=== PATIENT | female | born 1965 | race American Indian/Alaskan Native ===

== ENCOUNTER 2021-04-13 17:36 | Emergency (ER) | payer OTHER ==
[~2021-04-13] VITALS: Ht 160 cm; Wt 87.5 kg
[~2021-04-13 17:36] MED LIST: DULERA 100 MCG/13 GM INH; FEXOFENADINE H180 MG PO; LEVOTHYROXINE75 MCG PO; MULTIVITAMINS1 EAC8 PO; SINGULAIR10 MG PO; VENTOLIN HFA18 GM INH
--- OUTSIDE RECORDS SUMMARY | 2021-04-13 17:38 | XMS ---
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 Elena has no Care Guidelines for this patient. Hanny VISIT COUNT (12 MO.) 1 [facility] TOTAL 1 NOTE: Visits indicate total known visits. ED/C VISIT TRACKING (12 MO.) 04/13/2021 17:37 [facility] [place] TYPE: Emergency COMPLAINT: - COUGH,BODY ACHE INPATIENT VISIT TRACKING (12 MO.) No inpatient visits to display in this time frame [id number]
[2021-04-13] MEDS ORDERED: LEVOFLOXACIN750 MG PO (23:07)
== END 2021-04-13 23:25 | disposition home or self-care (01) ==
LOC: ED 17:36
DX: J18.9 Pneumonia, unspecified organism (principal); Z20.822 Contact with and (suspected) exposure to COVID-19; J45.909 Unspecified asthma, uncomplicated; E03.9 Hypothyroidism, unspecified; Z87.891 Personal history of nicotine dependence; Z88.0 Allergy status to penicillin; Z88.5 Allergy status to narcotic agent; Z88.8 Allergy status to other drugs, medicaments and biological substances; Z79.899 Other long term (current) drug therapy
CPT/HCPCS: 71046; 71260; 80053; 81001; 85025; 99285-25; C9803; J7040; Q9967; U0003

== ENCOUNTER 2021-04-16 16:34 | Inpatient (IN) | payer BC, OTHER ==
[~2021-04-16] VITALS: Ht 160 cm; Wt 88.2 kg
[~2021-04-16 16:34] MED LIST changes: +LEVOFLOXACIN750 MG PO
--- OUTSIDE RECORDS SUMMARY | 2021-04-16 16:38 | XMS ---
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 - Has Care Guidelines - [facility] - 2 Visits in 30 Days - PDMP CARE PROVIDERS [facility]/[place] 04/15/2021-[facility] PHONE: [phone] Elena has no Care Guidelines for this patient. Care History Medical/Surgical 04/15/2021 [facility] - PATIENT IS [facility] ELIGIBLE, \T\middot;\T\nbsp; PLEASE REFER PATIENT TO [facility] FOR NON EMERGENT MEDICAL NEEDS. \T\middot;\T\nbsp; [facility] CAN SEE PATIENTS SAME DAY FOR APTS IF PATIENT CALLS FIRST THING IN THE MORNING. E.D. VISIT COUNT (12 MO.) 2 [facility]. TOTAL 2 NOTE: Visits indicate total known visits. ED/UCC VISIT TRACKING (12 MO.) 04/16/2021 16:[address] [facility] [place] TYPE: Emergency COMPLAINT: - LOW O2 SATS DUE TO PNEUMONIA 04/13/2021 17:37 [facility] [place] TYPE: Emergency COMPLAINT: - COUGH,BODY ACHE INPATIENT VISIT TRACKING (12 MO.) No inpatient visits to display in this time frame [email or web address]
[2021-04-16] MEDS ORDERED: MEDROL4 MG PO (17:14)
--- NOTE | 2021-04-16 20:40 | NUR ---
pt ARRIVED TO THE UNIT VIA STRETCHER. AMBULATED TO BED WITHOUT ASSISTANCE. DANIS DUEÑAS IN ROOM TO ASSIST pt.
--- NOTE | 2021-04-16 21:15 | NUR ---
IN TO DO ASSESSMENT. pt RESTING IN BED. DENIES PAIN AND SOB AT THIS TIME. ABLE TO TALK IN FULL SENTENCES. ON 15L VIA OXYMASK. LUNG SOUNDS TIGHT. WHEEZING HEARD THROUGHOUT. NO REQUESTS AT THIS TIME. MAX DUEÑAS IN TO DO ADMISSION. CALL LIGHT WITHIN REACH.
--- NOTE | 2021-04-16 21:57 | NUR ---
ADMISSION COMPLETED. PATIENT ON MONITOR, SCHEDULED MEDICATION GIVEN PER ORDER. PATIENT DENIES ANY PAIN OR SOB. PATIENT TITRATED TO 11L VIA OXYMASK. PATIENTS OXYGEN SATURATION IS 97% PATIENT DENIES ANY SOB. PATIENT PROVIDED WITH ICE WATER AND SNACK. PATIENT DENIES ANY FURTHER NEEDS. CALL LIGHT IN REACH.
--- NOTE | 2021-04-16 22:20 | NUR ---
SPOKE WITH DR CLARKE, UPDATED ON pt CURRENT O2 NEEDS OF 11L VIA OXYMASK. NO NEW ORDERS AT THIS TIME.
--- NOTE | 2021-04-16 22:25 | NUR ---
PATIENT ASSISTED TO THE BSC A SBA. PATIENT WAS ABLE VOID. PATIENT IS BACK IN BED RESTING. PATIENT TITRATES DOWN TO 9L VIA NC. PATIENT DENIES ANY SOB. PATIENT DENIES ANY FURTHER NEEDS. CALL LIGHT IN REACH.
--- NOTE | 2021-04-16 23:05 | NUR ---
PATIENT PLACED ON 6L VIA NC W/HUMIDIFICATION. PATIENT PROVIDED WITH SANDWICH BOX. PATIENT DENIES ANY SOB. NO FURTHER NEEDS NOTED. CALL LIGHT IN REACH.
--- NOTE | 2021-04-16 23:50 | NUR ---
ROUNDED ON pt. RESTING IN BED. REPORTS SHE HAD ENOUGH TO EAT AND IS FEELING BETTER. DENIES PAIN. LUNG SOUNDS ARE LESS TIGHT MORE AIR MOVEMENT HEARD THEN ADMISSION ASSESSMENT. pt ON 6L NC. NO OTHER CHANGES IN ASSESSMENT. CALL LIGHT WITHIN REACH.
--- NOTE | 2021-04-17 00:20 | NUR ---
pt SATS IN THE HIGH 70'S ON 6L NC. SITTING UP IN BED WITH EYES CLOSED, WOKE TO VOICE. MOVED FROM NC 6L TO OXY MASK 9L. pt CONTINUES TO DESAT ON 9L OXY MASK, INCREASED TO 15L. pt SATS NOW LOW 90'S. CALL LIGHT WITHIN REACH.
--- NOTE | 2021-04-17 00:42 | NUR ---
RT ASSESSED pt. pt RESTING ON RIGHT SIDE, 15L HIGH FLOW NC. SATS MID 90'S. EYES CLOSED RESPIRATIONS REGULAR. CALL LIGHT WITHIN REACH.
--- NOTE | 2021-04-17 01:00 | NUR ---
pt UP TO HAVE A LARGE BM. O2 REQUIREMENTS INCREASED AFTER pt GOT BACK TO BED. CALL LIGHT WITHIN REACH.
--- NOTE | 2021-04-17 02:04 | NUR ---
ROUNDED ON pt. SITTING UP IN BED, EYES CLOSED, RESPIRATIONS REMAIN SHALLOW. pt SATS 98% ON OXYMASK, 13L. CALL LIGHT WITHIN REACH.
--- NOTE | 2021-04-17 02:28 | NUR ---
SATS MID 80'S. IN TO ASSESS. MOVED pt TO RIGHT SIDE. OXYMASK 13L. SAT INCREASED TO MID 90'S. CALL LIGHT WITHIN REACH.
--- NOTE | 2021-04-17 05:31 | NUR ---
pt SATS LOW 80'S. IN TO ASSESS. pt MOVING AROUND, SATS INCREASED AFTER SOME REST. MEDICATIONS GIVEN (SEE MAR). ASSESSMENT DONE. pt UP TO VOID AND BACK TO BED. EDUCATION DONE ON IMPORTANCE OF OXYGEN AND RESTRICTING ACTIVITY WHEN SHE IS SOB. pt WAS SOB WHEN BACK TO BED. RECOVERED WITHIN 2 MINUTES. O2 DEMAND INCREASED WITH AMBULATION. RESTING IN BED. OXYMASK ON AT 13L. CALL LIGHT WITHIN REACH.
--- NOTE | 2021-04-17 07:30 | NUR ---
report recieved. PATIENT IS RESTING IN BED WITH HOB ELEVATED. OXYMASK IN PLACE.
--- NOTE | 2021-04-17 08:00 | NUR ---
ASSESSMENT DONE.TALKED WITH PATIENT ABOUT POC FOR DAY, INDICATES UNDERSTANDING. IV ABX INFUSING. IS SHORT OF BREATH WITH EXERTION.
--- NOTE | 2021-04-17 08:30 | NUR ---
UP TO BR TO VOID. O2 SAT DOWN TO 77 WITH EXERTION. REMAINS ON OXYMASK AT 12 LITERS. WITHIN APPROX 3 MIN UPON RETURN TO BED, O2 SAT TO 88.
--- NOTE | 2021-04-17 09:00 | NUR ---
O2 SOURCE CHANGED TO VAPOTHERM AT 40L, 90% FIO2. DENIES PAIN. TOOK BREAKFAST FAIR. ROUTINE MEDICATIONS GIVEN.
--- NOTE | 2021-04-17 10:00 | NUR ---
O2 SATS REMAIN LOW ON VPOTHERM AT 100% FIO2, 40 LITERS.
--- NOTE | 2021-04-17 12:00 | NUR ---
DR. VINCE REIS TO SEE PATIENT. ORDERS RECIEVED. CHILDS CATH 16 FR PLACED WITH RETURN OF CLEAR YELLOW URINE. PATIENT IS CURRENTLY ON VAPOTHERM AT 40 L AND 100% FIO2, PATIENT HAS BEEN TAKING OUT THE NC FREQUENTLY TO BLOW NOSE, WHEN THIS DONE, O2 SAT DOWN TO LOW 80'S. ENC PATIENT TO KEEP VAPOTHERN NC IN MUCH POSSIBLE. 100% NRBM USED WELL, PRN. ASSESSMENT DONE.
--- NOTE | 2021-04-17 12:55 | NUR ---
NOW ON CPAP AT 60% FIO2 AND PRESSURE ON 10. FAMILY MEMBER IN ROOM. LASIX 40 MG IV GIVEN. CHILDS CATH PATENT.
--- NOTE | 2021-04-17 13:00 | NUR ---
LUNCH HELD AT THIS TIME DUE TO INCREASED O2 DEMAND.
[2021-04-17] MEDS ORDERED: CETIRIZINE HCL10 MG PO (14:02)
[2021-04-17] MEDS ORDERED: EZETIMIBE10 MG PO (14:03)
[2021-04-17] MEDS ORDERED: CHLORPHENIRAMINE4 MG PO (14:03)
[2021-04-17] MEDS ORDERED: WIXELA 500-501 EACH INH (14:04)
[2021-04-17] MEDS ORDERED: NALTREXONE HCL50 MG PO (14:05)
[2021-04-17] MEDS ORDERED: PSEUDOEPHEDRINE60 MG PO (14:06)
[2021-04-17] MEDS ORDERED: ALLERGY EYE DRO15 ML OPTH (14:06)
--- NOTE | 2021-04-17 14:08 | NUR ---
MED REC COMPLETED BY PHARMACY
--- NOTE | 2021-04-17 14:22 | NUR ---
CHECKING WITH PT TO SEE IF SHE WOULD LIKE A WEIGHT CONTROL ENGINEER TO VISIT TODAY FOLLOWING MASS. PT SAID YES, CONNECTED WITH FR. HOPKINS, HE WILL VISIT. WILL CONTINUE TO FOLLOW
--- NOTE | 2021-04-17 15:00 | NUR ---
HAS BEEN USING CPAP THIS AFTERNOON. DENEIS NAUSEA,PAIN.
--- NOTE | 2021-04-17 17:00 | NUR ---
DINNER HELD PATIENT TO BE TRANSFERRED.
--- NOTE | 2021-04-17 17:14 | NUR ---
CALLS MADE TO NUMEROUS TRANSFER CENTERS FOR BED SPACE. LOCATED BED SPACE AT [facility] IN [address]. [facility] CONTACTED WITH ETA OF 20 MIN
--- NOTE | 2021-04-17 17:50 | NUR ---
Update from RN. They are attempting to ship pt to a high level of care as she requires a curtain supervisor.
--- NOTE | 2021-04-17 18:15 | NUR ---
FLIGJMelissa TEAM HERE TO TAKE PATIENT TI [facility] IN [facility].
--- NOTE | 2021-04-17 18:30 | NUR ---
TO [facility] IN [facility] VIA [facility]ED [facility]. REPORT TO FLIGHT TEAM AND TO NEVAEH IN CCU AT [facility].
== END 2021-04-17 18:33 | disposition short-term general hospital (02) | DRG 193 ==
LOC: ED 16:34 → CCU 20:31
PROVIDERS: ADMIT Student in an Organized Health Care Education/Training Program; ATTEND Student in an Organized Health Care Education/Training Program
PROC: 5A09357 Assistance with Respiratory Ventilation, Less than 24 Consecutive Hours, Continuous Positive Airway Pressure (ICD-10-PCS; principal; 2021-04-16)
DX: J18.9 Pneumonia, unspecified organism (principal); J96.01 Acute respiratory failure with hypoxia; Z20.822 Contact with and (suspected) exposure to COVID-19; E03.9 Hypothyroidism, unspecified; F10.10 Alcohol abuse, uncomplicated; J45.909 Unspecified asthma, uncomplicated; K70.10 Alcoholic hepatitis without ascites; Z87.891 Personal history of nicotine dependence; Z88.0 Allergy status to penicillin; Z88.5 Allergy status to narcotic agent; Z88.8 Allergy status to other drugs, medicaments and biological substances; Z79.899 Other long term (current) drug therapy; Z79.52 Long term (current) use of systemic steroids
CPT/HCPCS: 71045; 71260; 80048; 80053; 80076; 81001; 82803; 83735; 83880; 84100; 85025; 85379; 86140; 87070; 87205; 93306; 94640; 94660; 94667; 94668; 94799; 99285-25; C9803; J0692; J1650; J1940; J2930; Q9967; U0003

== ENCOUNTER 2021-08-09 06:45 | Emergency (ER) | payer BC, OTHER ==
[~2021-08-09] VITALS: Ht 160 cm; Wt 90.7 kg
[~2021-08-09 06:45] MED LIST changes: +ALLERGY EYE DRO15 ML OPTH; +CETIRIZINE HCL10 MG PO; +CHLORPHENIRAMINE4 MG PO; +EZETIMIBE10 MG PO; +MEDROL4 MG PO; +NALTREXONE HCL50 MG PO; +PSEUDOEPHEDRINE60 MG PO; +WIXELA 500-501 EACH INH
--- OUTSIDE RECORDS SUMMARY | 2021-08-09 06:49 | XMS ---
PreManage Notification: REA COYNE Security Drier Events No recent Security Events currently on file CRITERIA MET - [facility] 04/15/2021-[facility] PHONE: [phone] Elena has no Care Guidelines for this patient. Care History Medical/Surgical 04/15/2021 [facility] - PATIENT IS [facility] ELIGIBLE, \T\middot;\T\nbsp; PLEASE REFER PATIENT TO [facility] FOR NON EMERGENT MEDICAL NEEDS. \T\middot;\T\nbsp; [facility] CAN SEE PATIENTS SAME DAY FOR APTS IF PATIENT CALLS FIRST THING IN THE MORNING. E.D. VISIT COUNT (12 MO.) 3 [facility] TOTAL 3 NOTE: Visits indicate total known visits. 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 - Allergy status to penicillin - Contact with and (suspected) exposure to COVID-19 INPATIENT VISIT TRACKING (12 MO.) 04/17/2021 21:[facility] TYPE: Inpatient DIAGNOSES: - Acute respiratory failure with hypoxia - Acute respiratory failure, unspecified whether with hypoxia or hypercapnia - Hypoxia 04/16/2021 20:31 [facility] [place] TYPE: Critical Care COMPLAINT: - HYPOXIA DIAGNOSES: - supervisor intermediates (current) use of systemic steroids - Pneumonia, unspecified organism - Allergy status to penicillin - Acute respiratory failure with hypoxia - Personal history of nicotine dependence - Alcohol abuse, uncomplicated - Allergy status to narcotic agent - Alcoholic hepatitis without ascites - Alcohol abuse, uncomplicated - Hypothyroidism, unspecified - long-term (current) use of systemic steroids - Alcoholic hepatitis without ascites - Personal history of nicotine dependence - Allergy status to narcotic agent - Other usp (current) drug therapy - Allergy status to other drugs, medicaments and biological substances - Allergy status to other drugs, medicaments and biological substances - Unspecified asthma, uncomplicated - Allergy status to penicillin - Acute respiratory failure with hypoxia - Other continuous 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
[2021-08-09] MEDS ORDERED: SULFAMETHOXAZO1 EACH PO (07:07)
[2021-08-09] MEDS ORDERED: AZATHIOPRINE50 MG PO (07:08)
[2021-08-09] MEDS ORDERED: PREDNISONE1 MG PO (07:08)
== END 2021-08-09 08:27 | disposition home or self-care (01) ==
LOC: ED 06:45
DX: U07.1 COVID-19 (principal); J45.909 Unspecified asthma, uncomplicated; E66.9 Obesity, unspecified; Z68.35 Body mass index [BMI] 35.0-35.9, adult; Z88.0 Allergy status to penicillin; Z88.8 Allergy status to other drugs, medicaments and biological substances; Z88.5 Allergy status to narcotic agent; Z87.891 Personal history of nicotine dependence
CPT/HCPCS: 96374; 99283-25

== ENCOUNTER 2023-03-31 13:59 | Emergency (ER) | payer BC, OTHER ==
[~2023-03-31] VITALS: Ht 160 cm; Wt 90.3 kg
--- NOTE | ~2023-03-31 | EKG ---
[facility] [address] [place], [place] [address] Draft EK completed, results pending confirmation PATIENT NAME: DORETHAREABharath MCKEON Electrocardiogram DATE OF : 61 PHYSICIAN: PRELIMINARY REPORT #: [id number] REPORT IS CONFIDENTIAL AND NOT TO BE RELEASED WITHOUT AUTHORIZATION
[~2023-03-31 13:59] MED LIST changes: +AZATHIOPRINE50 MG PO; +PREDNISONE1 MG PO; +SULFAMETHOXAZO1 EACH PO
[2023-03-31 14:56] LABS: BASOPHILS 0.4 % (0-2); EOSINOPHILS 1.3 % (0-6); HEMATOCRIT 43.9 % (35.0-50.0); HEMOGLOBIN 14.9 g/dL (12.0-18.0); LYMPHOCYTES 8.4 % (24-44); MCH 33.5 (27-36); MCHC 33.9 g/dl (30-36); MCV 98.7 fl (81-99); MONOCYTES 9.8 % (0-12); NEUTROPHILS 80.1 % (39-80); PLATELET COUNT 287 K/uL (140-440); RBC 4.45 M/ul (4.3-5.7)
[2023-03-31 15:05] LABS: BILIRUBIN, URINE NEGATIVE (negative); BLOOD/HGB, URINE NEGATIVE (Negative); KETONE, URINE NEGATIVE (Negative); LEUK ESTERASE, URINE NEGATIVE (negative); NITRITE, URINE NEGATIVE (negative); PH, URINE 6.5 (5-7)
[2023-03-31 15:09] LABS: ALBUMIN 3.8 g/dL (3.4-5.0); ALBUMIN/GLOBULIN RATIO 0.97 (1.1-2.4); BILIRUBIN, TOTAL 0.8 ng/dL (0.2-1.0); BUN/CREATININE RATIO 4.93 (6.0-28.6); CALCIUM 9.1 mg/dL (8.5-10.1); CREATININE, SERUM 0.81 mg/dL (0.55-1.02); PROTEIN, TOTAL 7.7 g/dL (6.4-8.2)
[2023-03-31 15:15] LABS: LACTIC ACID, BLOOD 1.4 mmol/L (0.4-2.0)
[2023-03-31 17:41] VITALS: BP 144/76
== END 2023-03-31 17:35 | disposition home or self-care (01) ==
LOC: ED 13:59
PROVIDERS: Emergency Medicine
DX: U07.1 COVID-19 (principal); J45.909 Unspecified asthma, uncomplicated; E03.9 Hypothyroidism, unspecified; D84.821 Immunodeficiency due to drugs; Z87.891 Personal history of nicotine dependence; Z88.0 Allergy status to penicillin; Z88.8 Allergy status to other drugs, medicaments and biological substances; Z88.5 Allergy status to narcotic agent; Z79.899 Other long term (current) drug therapy; Z79.890 Hormone replacement therapy
CPT/HCPCS: 36415; 71045; 80053; 81003; 83605; 85025; 87040; 99283-25

== ENCOUNTER 2024-02-27 10:39 | Emergency (ER) | payer BC, OTHER ==
[~2024-02-27] VITALS: Ht 160 cm; Wt 89.3 kg
[2024-02-27] MEDS ORDERED: ACETAMINOPHEN 500 MG TAB PO ONE (11:30)
[2024-02-27 11:39] LABS: INFLUENZA B NAA NEGATIVE (NEGATIVE); RESPIRATORY SYNCYTIAL VIR NAA NEGATIVE (NEGATIVE)
[2024-02-27 12:53] VITALS: BP 108/68
== END 2024-02-27 12:54 | disposition home or self-care (01) ==
LOC: ED 10:39
PROVIDERS: Emergency Medicine
DX: J06.9 Acute upper respiratory infection, unspecified (principal); J45.909 Unspecified asthma, uncomplicated; E03.9 Hypothyroidism, unspecified; Z87.891 Personal history of nicotine dependence; Z88.0 Allergy status to penicillin; Z88.8 Allergy status to other drugs, medicaments and biological substances; Z88.5 Allergy status to narcotic agent; Z79.890 Hormone replacement therapy; Z79.899 Other long term (current) drug therapy
CPT/HCPCS: 87502; 99283; A9270; U0002